=== PATIENT | female | born 1945 | race Caucasian/White ===

== ENCOUNTER → 2017-06-29 | Outpatient (CLI) | payer MEDICARE ==
--- NOTE | 2017-06-29 10:28 | BD ---
EXAMINATION TYPE: MG DEXA axial skeleton. DATE OF EXAM: 06/29/2017 COMPARISON: DEXA bone scan June 13, 2013 CLINICAL HISTORY: perimenopausal disorders Height: 5'5 Weight: 181 FRAX RISK QUESTIONS: Alcohol (3 or more units per day): no Family History (Parent hip fracture): no Glucocorticoids (More than 3mos): no (Ex: prednisone, prednisolone, methylprednisolone, dexamethasone, and hydrocortisone). History of Fracture in Adulthood: yes Secondary Osteoporosis: 1. Type 1 Diabetes: no 2. Hyperthyroidism: no 3. Menopause before 45: yes 4. Malnutrition: no 5. Chronic liver disease: no Rheumatoid Arthritis: no Current Tobacco Use: no RISK FACTORS HISTORY OF: Postmenopausal woman: MEDICATIONS: Prednisone or other steroids: How Lon week Thyroid Medications: Which medication: Levothyroxine How Lon years Additional Medications: blood pressure, cholesterol, Additional History: EXAM MEASUREMENTS: Bone mineral densitometry was performed using the [employer] System. Bone mineral density as measured about the Lumbar spine is: ----- L1-L4(G/cm2): 1.296 T Score Values are as follows: ----- L2: -0.1 ----- L3: 1.5 ----- L4: 2.0 ----- L1-L4:1.0 Bone mineral density has: Increased 3.8% since study of: 06/13/2013 Bone mineral density about the R hip (g/cm2): 1.014 Bone mineral density about the L hip (g/cm2): 1.005 T Score values are as follows: -----R Neck: -0.2 -----L Neck: -0.2 -----R Total: -0.2 -----L Total: -0.1 Bone mineral density has: Decreased -2.4% since study of: 06/13/2013 IMPRESSION: Normal (Values between +1 and -1 indicate normal bone mass). Bone density fairly stable. Consider re peating this study in 5 years or sooner if there is some new clinical indication. NOTE: T-SCORE=SD OF THE YOUNG ADULT MEAN.
== END ==
LOC: RADBDWWP 09:36
PROVIDERS: ATTEND Family Medicine
DX: N95.0 Postmenopausal bleeding (principal)
CPT/HCPCS: 77080

== ENCOUNTER 2018-10-17 10:21 | Emergency (ER) | payer MEDICARE ==
[2018-10-17 10:37] VITALS: RESP 18
[2018-10-17] MEDS ORDERED: SODIUM CHLORIDE 0.9% 500 ML 500 ML IV STA (11:06)
--- NOTE | 2018-10-17 11:16 | ED ---
General Adult HPI - General Chief complaint: Neuro Symptoms/Deficit Stated complaint: Confusion post op Time Seen by Provider: 10/17/18 10:57 Source: patient, family, RN notes reviewed Mode of arrival: ambulatory Limitations: no limitations - History of Present Illness Initial comments: 73-year-old female with a past medical history of GERD, hypertension, Green's esophagus, cataract surgery 2 weeks ago presents to the emergency department for a chief complaint of memory loss. This occurred about one hour prior to arrival. Patient's daughter states that she started to have pain in the eye that she had surgery on and went to the subway train [place] and was diagnosed with an infection. She was on her way home when the patient no longer remembered she went to the eye doctor. She seemed confused so they brought her to the emergency department. Patient states she does not room or why she is here but does not she is at [facility]. Patient denies any weakness or loss of sensation. Patient denies any difficulty ambulating. Patient states she feels her normal self. Patient has no other complaints at this time including shortness of breath, chest pain, abdominal pain, nausea or vomiting, headache, or visual changes. - Related Data Home Medications Medication Instructions Recorded Confirmed Levothyroxine Sodium [Tirosint] 75 mcg PO HS 08/30/14 10/17/18 Omeprazole [PriLOSEC] 20 mg PO AC-BRKFST 08/30/14 10/17/18 Atenolol 25 mg PO DAILY 10/17/18 10/17/18 Cholecalciferol (Vitamin D3) 4,000 mg PO DAILY@1200 10/17/18 10/17/18 [Vitamin D3] Montelukast [Singulair] 10 mg PO DAILY 10/17/18 10/17/18 Allergies Allergy/AdvReac Type Severity Reaction Status Date / Time No Known Allergies Allergy Verified 10/17/18 11:58 Review of Systems ROS Statement: Those systems with pertinent positive or pertinent negative responses have been documented in the HPI. ROS Other: All systems not noted in ROS Statement are negative. Past Medical History Past Medical History: GERD/Reflux, Hypertension Additional Past Medical History / Comment(s): barrets esophagus History of Any Multi-Drug Resistant Organisms: None Reported Past Surgical History: Tubal Ligation Additional Past Surgical History / Comment(s): Catarac surgary Past Psychological History: No Psychological Hx Reported Smoking Status: Never smoker Past Alcohol Use History: None Reported Past Drug Use History: None Reported General Exam Limitations: no limitations General appearance: alert, in no apparent distress Head exam: Present: atraumatic, normocephalic, normal inspection Eye exam: Present: normal appearance, PERRL, EOMI. Absent: scleral icterus, conjunctival injection, periorbital swelling ENT exam: Present: normal exam, normal oropharynx, mucous membranes moist, TM's normal bilaterally, normal external ear exam Neck exam: Present: normal inspection, full ROM. Absent: tenderness, meningismus, lymphadenopathy Respiratory exam: Present: normal lung sounds bilaterally. Absent: respiratory distress, wheezes, rales, rhonchi, stridor Cardiovascular Exam: Present: regular rate, normal rhythm, normal heart sounds. Absent: systolic murmur, diastolic murmur, rubs, gallop, clicks GI/Abdominal exam: Present: soft, normal bowel sounds. Absent: distended, tenderness, guarding, rebound, rigid Neurological exam: Present: alert, CN II-XII intact, normal gait. Absent: oriented X3 (oriented x2 to person and place), motor sensory deficit Expanded Neurological exam: Present: memory loss-recent event Patient oriented to: Present: person, place. Absent: time Speech: Present: fluid speech Cranial nerves: EOM's Intact: Normal, Gag Reflex: Normal, Tongue Deviation: Normal, Nystagmus: Normal, Facial Sensation: Normal Cerebellar function: Finger to Nose: Normal, Romberg: Normal Upper motor neuron: Pronator Drift: Normal Sensory exam: Upper Extremity Light Touch: Normal, Upper Extremity Pin Prick: Normal, Lower Extremity Light Touch: Normal, Lower Extremity Pin Prick: Normal Motor strength exam: RUE: 5, LUE: 5, RLE: 5, LLE: 5 Eye Response: (4) open spontaneously Motor Response: (6) obeys commands Verbal Response: (5) oriented James Total: 15 Psychiatric exam: Present: normal affect, normal mood Course Vital Signs 10/17/18 10/17/18 10/17/18 10:29 11:49 14:00 Temperature 98.5 F Pulse Rate 58 L 63 Respiratory 18 18 Rate Blood Pressure 198/105 179/104 180/93 O2 Sat by Pulse 97 98 99 Oximetry 10/17/18 14:18 Temperature Pulse Rate 61 Respiratory 18 Rate Blood Pressure 163/99 O2 Sat by Pulse 99 Oximetry - Reevaluation(s) Reevaluation #1: 10/17/18 14:[address] Burt at [facility] who will be calling neuro to see if they will admit her. EKG Findings - EKG Comments: EKG Findings:: Normal sinus rhythm, ventricular rate 60, QRS duration 82, QTC 416, no evidence of ST elevation or depression. Medical Decision Making - Medical Decision Making 73-year-old female with a past medical history of hypertension presents to the emergency department for a chief complaint of memory loss occurring approximately one hour prior to arrival. Patient received cataract surgery about 2 weeks ago and was on her way home from a recheck due to eye pain from an infection when she started to have memory loss. Daughter states patient could not remember she went to the eye doctor. On arrival to the emergency department patient is alert and oriented 2. NIH is 0. No focal deficits. CBC CMP unremarkable. Glucose 126. Troponin negative. Urine will be cultured. Chest x-ray shows no acute process. CT brain shows age-related chronic vessel ischemic change without acute intercranial process. Patient has possible TIA with symptoms of global amnesia. Patient has been somewhat hypertensive in the emergency department however this is within acceptable limits for symptoms. Dr. Hdz discussed this case with Dr Penaloza who recommends transfer to [facility] for neurology consult. This way, he can also see the patient at [facility]. Dr Burt at [facility] spoke with neurologist there and they do accept transfer. Family agrees with this. - Lab Data Result diagrams: 10/17/18 11:45 10/17/18 11:45 Lab Results 10/17/18 10/17/18 10/17/18 Range/Units 11:30 11:35 11:45 WBC (3.8-10.6) k/uL RBC (3.80-5.40) m/uL Hgb (11.4-16.0) gm/dL Hct (34.0-46.0) % MCV (80.0-100.0) fL MCH (25.0-35.0) pg MCHC (31.0-37.0) g/dL RDW (11.5-15.5) % Plt Count (150-450) k/uL Neutrophils % % Lymphocytes % % Monocytes % % Eosinophils % % Basophils % % Neutrophils # (1.3-7.7) k/uL Lymphocytes # (1.0-4.8) k/uL Monocytes # (0-1.0) k/uL Eosinophils # (0-0.7) k/uL Basophils # (0-0.2) k/uL PT (9.0-12.0) sec INR (<1.2) APTT (22.0-30.0) sec Sodium (137-145) mmol/L Potassium (3.5-5.1) mmol/L Chloride (98-107) mmol/L Carbon Dioxide (22-30) mmol/L Anion Gap mmol/L BUN (7-17) mg/dL Creatinine (0.52-1.04) mg/dL Est GFR (CKD-EPI)AfAm (>60 ml/min/1.73 sqM) Est GFR (CKD-EPI)NonAf (>60 ml/min/1.73 sqM) Glucose (74-99) mg/dL POC Glucose (mg/dL) 126 H (75-99) mg/dL POC Glu Molding Sander ID Freya Thurston Calcium (8.4-10.2) mg/dL Total Bilirubin (0.2-1.3) mg/dL AST (14-36) U/L ALT (9-52) U/L Alkaline Phosphatase (38-126) U/L Total Creatine Kinase 61 (30-135) U/L CK-MB (CK-2) 0.4 (0.0-2.4) ng/mL CK-MB (CK-2) Rel Index 0.7 Troponin I <0.012 (0.000-0.034) ng/mL Total Protein (6.3-8.2) g/dL Albumin (3.5-5.0) g/dL Urine Color Light Yellow Urine Appearance Clear (Clear) Urine pH 5.5 (5.0-8.0) Ur Specific [place]er 1.006 (1.001-1.035) Urine Protein Negative (Negative) Urine Glucose (UA) Trace H (Negative) Urine Ketones Negative (Negative) Urine Blood Negative (Negative) Urine Nitrite Negative (Negative) Urine Bilirubin Negative (Negative) Urine Urobilinogen <2.0 (<2.0) mg/dL Ur Leukocyte Esterase Moderate H (Negative) Urine WBC 3 (0-5) /hpf Ur Squamous Epith Cells <1 (0-4) /hpf Urine Bacteria Rare H (None) /hpf Urine Mucus Rare H (None) /hpf 10/17/18 10/17/18 10/17/18 Range/Units 11:45 11:45 11:45 WBC 4.8 (3.8-10.6) k/uL RBC 4.88 (3.80-5.40) m/uL Hgb 14.5 (11.4-16.0) gm/dL Hct 42.6 (34.0-46.0) % MCV 87.3 (80.0-100.0) fL MCH 29.7 (25.0-35.0) pg MCHC 34.0 (31.0-37.0) g/dL RDW 13.6 (11.5-15.5) % Plt Count 150 (150-450) k/uL Neutrophils % 70 % Lymphocytes % 20 % Monocytes % 6 % Eosinophils % 1 % Basophils % 1 % Neutrophils # 3.4 (1.3-7.7) k/uL Lymphocytes # 0.9 L (1.0-4.8) k/uL Monocytes # 0.3 (0-1.0) k/uL Eosinophils # 0.1 (0-0.7) k/uL Basophils # 0.0 (0-0.2) k/uL PT 9.9 (9.0-12.0) sec INR 0.9 (<1.2) APTT 24.8 (22.0-30.0) sec Sodium 142 (137-145) mmol/L Potassium 3.9 (3.5-5.1) mmol/L Chloride 106 (98-107) mmol/L Carbon Dioxide 27 (22-30) mmol/L Anion Gap 9 mmol/L BUN 13 (7-17) mg/dL Creatinine 1.08 H (0.52-1.04) mg/dL Est GFR (CKD-EPI)AfAm 59 (>60 ml/min/1.73 sqM) Est GFR (CKD-EPI)NonAf 51 (>60 ml/min/1.73 sqM) Glucose 106 H (74-99) mg/dL POC Glucose (mg/dL) (75-99) mg/dL POC Glu Molding Sander ID Calcium 9.5 (8.4-10.2) mg/dL Total Bilirubin 0.7 (0.2-1.3) mg/dL AST 23 (14-36) U/L ALT 21 (9-52) U/L Alkaline Phosphatase 52 (38-126) U/L Total Creatine Kinase (30-135) U/L CK-MB (CK-2) (0.0-2.4) ng/mL CK-MB (CK-2) Rel Index Troponin I (0.000-0.034) ng/mL Total Protein 6.9 (6.3-8.2) g/dL Albumin 4.5 (3.5-5.0) g/dL Urine Color Urine Appearance (Clear) Urine pH (5.0-8.0) Ur Specific Geyser (1.001-1.035) Urine Protein (Negative) Urine Glucose (UA) (Negative) Urine Ketones (Negative) Urine Blood (Negative) Urine Nitrite (Negative) Urine Bilirubin (Negative) Urine Urobilinogen (<2.0) mg/dL Ur Leukocyte Esterase (Negative) Urine WBC (0-5) /hpf Ur Squamous Epith Cells (0-4) /hpf Urine Bacteria (None) /hpf Urine Mucus (None) /hpf Disposition Clinical Impression: Global amnesia Disposition: OTHER INSTITUTION NOT DEFINED Condition: Fair Is patient prescribed a controlled substance at d/c from ED?: No Referrals: Nicohle Driscoll MD [Primary Care Provider] - 1-2 days Time of Disposition: 14:33 - Out of Hospital Transfer - Req. Specs Out of Hospital Transfer - Requested Specifics: Other Emergency Center ([facility])
[2018-10-17 11:39] LABS: Glucose,Whole Blood 126 mg/dL (75-99)
[2018-10-17 12:05] LABS: Basophils % (A) 1 %; Eosinophils # (A) 0.1 k/uL (0-0.7); Eosinophils % (A) 1 %; HCT 42.6 % (34.0-46.0); HGB 14.5 gm/dL (11.4-16.0); Lymphocytes # (A) 0.9 k/uL (1.0-4.8); Lymphocytes % (A) 20 %; MCH 29.7 pg (25.0-35.0); MCV 87.3 fL (80.0-100.0); Mean Platelet Volume 8.2; Monocytes # (A) 0.3 k/uL (0-1.0); Monocytes % (A) 6 %; Neutrophils # (A) 3.4 k/uL (1.3-7.7); Neutrophils % (A) 70 %; Platelet Count 150 k/uL (150-450); RBC 4.88 m/uL (3.80-5.40); RDW 13.6 % (11.5-15.5); WBC 4.8 k/uL (3.8-10.6)
--- NOTE | 2018-10-17 12:08 | CT ---
EXAMINATION TYPE: CT brain wo con DATE OF EXAM: 10/17/2018 COMPARISON: None HISTORY: Confusion CT DLP: 1101.[address] of the brain was performed. The ventricles, basal cisterns and sulci overlying the cerebral convexities demonstrate mild enlargem ent. There is no evidence for intracranial hemorrhage or sulcal effacement. There is decreased attenuation about the periventricular white matter and deep white matter of both c erebral hemispheres, compatible with chronic small vessel ischemia. Differential diagnosis does inclu de demyelination. No mass effects are seen.No midline shift. Osseous calvarium is intact. If symptoms persist consider MRI. IMPRESSION: 1. Age related atrophic and chronic small vessel ischemic change without acute intracranial process s een at this time.
[2018-10-17 12:13] LABS: Albumin 4.5 g/dL (3.5-5.0); Calcium 9.5 mg/dL (8.4-10.2); Potassium 3.9 mmol/L (3.5-5.1); Total Bilirubin 0.7 mg/dL (0.2-1.3); Total Protein 6.9 g/dL (6.3-8.2)
[2018-10-17 12:20] LABS: INR 0.9 (<1.2); Partial Thromboplastin Time 24.8 sec (22.0-30.0); Prothrombin Time 9.9 sec (9.0-12.0)
[2018-10-17 12:20] LABS: Appearance,Urine Clear (Clear); Bacteria,Urine Rare /hpf; Bilirubin,Urine Negative (Negative); Blood,Urine Negative (Negative); Color,Urine Light Yellow; Glucose,Urine (UA) Trace (Negative); Ketones,Urine Negative (Negative); Leukocyte Esterase,Urine Moderate (Negative); Mucus,Urine Rare /hpf; Nitrite,Urine Negative (Negative); PH, Urine 5.5 (5.0-8.0); Protein,Urine Negative (Negative); Specific Gravity,Urine 1.006 (1.001-1.035); Squamous Epithelial Cell,Urine <1 /hpf (0-4); Urobilinogen,Urine <2.0 mg/dL (<2.0); WBC,Urine 3 /hpf (0-5)
--- NOTE | 2018-10-17 12:23 | XR ---
EXAMINATION TYPE: XR chest 2V DATE OF EXAM: 10/17/2018 COMPARISON: 11/30/2015 TECHNIQUE: PA and lateral views submitted. HISTORY: Altered mental status FINDINGS: The lungs are clear and there is no pneumothorax, pleural effusion, or focal pneumonia. Hypertrophi c and degenerative change of the spine. No overt failure. IMPRESSION: 1. No acute process.
[2018-10-17 12:26] LABS: Creatine Kinase 61 U/L (30-135)
[2018-10-17 12:39] LABS: Creatine Kinase MB 0.4 ng/mL (0.0-2.4); Troponin I <0.012 ng/mL (0.000-0.034)
[2018-10-17 14:19] VITALS: BP 163/99; PULSE 61
[2018-10-17 15:14] VITALS: TEMP 98.7
== END 2018-10-17 15:14 | disposition other institution (70) ==
LOC: EC 10:21
DX: G45.4 Transient global amnesia (principal); K21.9 Gastro-esophageal reflux disease without esophagitis; I10 Essential (primary) hypertension; Z79.890 Hormone replacement therapy; Z79.899 Other long term (current) drug therapy
CPT/HCPCS: 36415; 70450; 71046; 80053; 81001; 82550; 82553; 84484; 85025; 85610; 85730; 87086; 93005; 96360; 99285

== ENCOUNTER → 2018-11-03 | Outpatient (CLI) | payer MEDICARE ==
--- NOTE | 2018-11-03 16:44 | MR ---
EXAMINATION TYPE: MR angio head wo con DATE OF EXAM: 11/03/2018 COMPARISON: None HISTORY: TIA CONTRAST: None TECHNIQUE: Multiplanar multiecho imaging on a 3.0 Kendal magnet is performed through the [place] of Justin lis. 3-D [id number] imaging is performed. Source images are reviewed on the computer in the axi al plane. Reconstructed images rotating on the computer are reviewed. FINDINGS: The internal carotid arteries bifurcate normally into A1 and M1 segments. The A2 segments are normal. Middle cerebral artery branches are normal. Anterior communicating artery is patent. The right posterior communicating artery is patent. This appears to terminate in the right posterior cerebral artery although this is also communicating with vertebrobasilar system. The left posterior communicating artery is absent. Ophthalmic arteries are normal Vertebrobasilar arteries within the [id number] are normal. Posterior cerebral vasculature is norm al. No suspicious aneurysm or aneurysmal dilatation is evident. No obstructions are identified. No significant flow-limiting stenosis is evident. IMPRESSIONS: 1. NORMAL MRA SANTO DOMINGO OF BACK.
--- NOTE | 2018-11-03 16:46 | MR ---
EXAMINATION TYPE: MR brain wo/w con DATE OF EXAM: 11/03/2018 COMPARISON: CT brain 10/17/2018 HISTORY: TIA CONTRAST: Performed utilizing 8 mL intravenous Gadavist gadolinium contrast. TECHNIQUE: Multiplanar, multiecho imaging on a 3.0 Kendal magnet is performed through the brain. Stud y is performed within 24 hours of arrival to the hospital. The craniovertebral junction is normal. The pituitary is normal. Diffusion-weighted imaging is performed. No abnormal hyperintensity is present to suggest an acute i ntracranial infarct or acute ischemic change. There are scattered patchy areas of increased signal within the periventricular white matter which co uld be related to chronic white matter changes. Ventricles and sulci are appropriate for the patient age. No suspicious enhancement is evident following contrast administration. IMPRESSIONS: 1. Chronic appearing white matter ischemic type changes. 2. No acute intracranial process.
== END ==
LOC: RADMRIMAIN 11:33
PROVIDERS: ATTEND Family Medicine
DX: I67.82 Cerebral ischemia (principal); N18.1 Chronic kidney disease, stage 1
CPT/HCPCS: 82565; 84520; 70544; 70553; 36415; A9585

== ENCOUNTER 2018-12-19 18:26 | Emergency (ER) | payer MEDICARE ==
[2018-12-19 18:47] VITALS: RESP 16
--- NOTE | 2018-12-19 19:07 | ED ---
Lower Extremity Injury HPI - General Chief Complaint: Extremity Injury, Lower Stated Complaint: fall, rt leg injury Time Seen by Provider: 12/19/18 18:50 Source: patient, RN notes reviewed, old records reviewed Mode of arrival: ambulatory Limitations: no limitations - History of Present Illness Initial Comments: Patient is a 73-year-old female who presents today with right lower extremity swelling and bruising. Patient reports she has history of significant varicose veins. She reports that her daughter's Young the dog ran into her leg. She complains of some swelling and pain in the lower leg and calf. Patient states that she has no shortness breath or chest pain. She denies any other complaints. She reports that she fell and her leg one week ago but was doing well up until today when the new injury occurred. - Related Data Home Medications Medication Instructions Recorded Confirmed Levothyroxine Sodium [Tirosint] 75 mcg PO HS 08/30/14 10/17/18 Omeprazole [PriLOSEC] 20 mg PO AC-BRKFST 08/30/14 10/17/18 Atenolol 25 mg PO DAILY 10/17/18 10/17/18 Cholecalciferol (Vitamin D3) 4,000 mg PO DAILY@1200 10/17/18 10/17/18 [Vitamin D3] Montelukast [Singulair] 10 mg PO DAILY 10/17/18 10/17/18 Allergies Allergy/AdvReac Type Severity Reaction Status Date / Time No Known Allergies Allergy Verified 12/19/18 18:47 Review of Systems ROS Statement: Those systems with pertinent positive or pertinent negative responses have been documented in the HPI. ROS Other: All systems not noted in ROS Statement are negative. Past Medical History Past Medical History: GERD/Reflux, Hypertension Additional Past Medical History / Comment(s): barrets esophagus History of Any Multi-Drug Resistant Organisms: None Reported Past Surgical History: Tubal Ligation Additional Past Surgical History / Comment(s): Catarac surgary Past Psychological History: No Psychological Hx Reported Smoking Status: Never smoker Past Alcohol Use History: None Reported Past Drug Use History: None Reported General Exam - General Exam Comments Initial Comments: 73-year-old female. Alert and oriented. No distress. Limitations: no limitations General appearance: alert, in no apparent distress Head exam: Present: atraumatic, normocephalic, normal inspection Eye exam: Present: normal appearance, PERRL, EOMI. Absent: scleral icterus, conjunctival injection, periorbital swelling ENT exam: Present: normal exam, mucous membranes moist Neck exam: Present: normal inspection. Absent: tenderness, meningismus, lymphadenopathy Respiratory exam: Present: normal lung sounds bilaterally. Absent: respiratory distress, wheezes, rales, rhonchi, stridor Cardiovascular Exam: Present: regular rate, normal rhythm, normal heart sounds. Absent: systolic murmur, diastolic murmur, rubs, gallop, clicks GI/Abdominal exam: Present: soft, normal bowel sounds. Absent: distended, tenderness, guarding, rebound, rigid Extremities exam: Present: normal inspection, full ROM, normal capillary refill. Absent: tenderness, pedal edema, joint swelling, calf tenderness Right Knee exam: Present: normal inspection, full ROM Lower Leg exam: Present: normal inspection, tenderness, swelling, ecchymosis (large hematoma and ecchymosis over anterior piper measuring 6cm by 10cm.) Ankle exam: Present: normal inspection, full ROM Back exam: Present: normal inspection Neurological exam: Present: alert, oriented X3, CN II-XII intact Psychiatric exam: Present: normal affect, normal mood Skin exam: Present: warm, dry, intact, normal color. Absent: rash Course Vital Signs 12/19/18 12/19/18 18:44 20:45 Temperature 98 F 98.3 F Pulse Rate 67 56 L Respiratory 16 16 Rate Blood Pressure 135/89 132/71 O2 Sat by Pulse 98 95 Oximetry Medical Decision Making - Medical Decision Making 73-year-old female presents for shortness today with right lower extremity bruising. Patient reports that she was ran into by her daughter's dog. She has some contusions over the anterior piper and tenderness of the calf. Patient had ultrasound was negative for DVT. X-ray of the tib-fib is negative for any acute process. Discussed this is just a contusion and will go away with rest ice and elevation. Patient understands treatment plan will comply. Return parameters were discussed. - Radiology Data Radiology results: report reviewed No acute fracture dislocation seen in the right tibia or fibula. Ultrasound is negative for DVT. Disposition Clinical Impression: Contusion of leg Disposition: HOME SELF-CARE Condition: Good Instructions (If sedation given, give patient instructions): Hematoma (ED) Additional Instructions: Patient advised to follow-up with primary care doctor. Wear Sonny wrap. Rest, ice, and elevate extremity. Return to emergency department if any alarming signs or symptoms occur. Is patient prescribed a controlled substance at d/c from ED?: No Referrals: Nichole Driscoll MD [Primary Care Provider] - 1-2 days Time of Disposition: 20:50
--- NOTE | 2018-12-19 20:05 | US ---
EXAMINATION TYPE: US venous doppler duplex LE RT DATE OF EXAM: 12/19/2018 7:49 PM COMPARISON: NONE CLINICAL HISTORY: Pain. Right leg pain. SIDE PERFORMED: Right TECHNIQUE: The lower extremity deep venous system is examined utilizing real time linear array sonog ricky with graded compression, doppler sonography and color-flow sonography. VESSELS IMAGED: External Iliac Vein (EIV) Common Femoral Vein Deep Femoral Vein Greater Saphenous Vein * Femoral Vein Popliteal Vein Small Saphenous Vein * Proximal Calf Veins (* superficial vessels) Right Leg: Negative for DVT Grayscale, color doppler, spectral doppler imaging performed of the deep veins of the right lower ext remity. There is normal flow, compressibility, vascular waveforms. IMPRESSION: No ultrasound evidence for acute DVT in the right lower extremity.
--- NOTE | 2018-12-19 20:44 | XR ---
EXAMINATION TYPE: XR tibia fibula RT DATE OF EXAM: 12/19/2018 CLINICAL HISTORY: Pain after fall injury. TECHNIQUE: Two views of the right leg are obtained. COMPARISON: None. FINDINGS: There is no acute fracture or dislocation seen in the right tibia or fibula. Mild to moder ate tricompartment joint space loss in the is present. Visualized ankle joint is felt within normal l imits. Tubular density soft tissue could reflect varicose veins or overlying clothing material. IMPRESSION: There is no acute fracture or dislocation seen in the right tibia or fibula.
[2018-12-19 20:46] VITALS: BP 132/71; PULSE 56; TEMP 98.3
== END 2018-12-19 21:00 | disposition home or self-care (01) ==
LOC: EC 18:26
DX: S80.11XA Contusion of right lower leg, initial encounter (principal); K21.9 Gastro-esophageal reflux disease without esophagitis; I10 Essential (primary) hypertension; Z86.79 Personal history of other diseases of the circulatory system; Z98.51 Tubal ligation status; Z98.890 Other specified postprocedural states; Z79.890 Hormone replacement therapy; Z79.899 Other long term (current) drug therapy; W54.1XXA Struck by dog, initial encounter; W19.XXXA Unspecified fall, initial encounter; W22.8XXA Striking against or struck by other objects, initial encounter
CPT/HCPCS: 99284

== ENCOUNTER → 2022-02-20 | Outpatient (CLI) | payer MEDICARE ==
--- NOTE | 2022-02-20 19:01 | CT ---
EXAMINATION TYPE: CT abdomen pelvis w con DATE OF EXAM: 02/20/2022 COMPARISON: None HISTORY: diarrhea CT DLP: 1045.9 mGycm Automated exposure control for dose reduction was used. CONTRAST: CT scan of the abdomen pelvis is performed with IV Contrast, patient injected with 80 mL of Isovue 30 0. FINDINGS- LUNG BASES-year subsegmental changes at the lung bases most typical of atelectasis. Mild basilar bron chiectasis. Correlate for COPD. Calcification of the aortic valve noted. Small hiatal hernia seen.. LIVER/GB-within the left lobe of the liver there is a 1.8 cm hypodensity measuring 9 Hounsfield units , simple cyst. No gallstones.. PANCREAS- No gross abnormality is seen. SPLEEN- No gross abnormality is seen. ADRENALS- No gross abnormality is seen. KIDNEYS/BLADDER- no hydronephrosis nephrolithiasis or renal mass. BOWEL-diverticulosis with no CT evidence of diverticulitis. No evidence of obstruction. There is thic kening of the wall the gastric antrum and pylorus. LYMPH NODES- No greater than 1cm abdominal or pelvic lymph nodes areappreciated. OSSEOUS STRUCTURES-hypertrophic and degenerative changes spine with multilevel facet arthropathy and grade 1 anterolisthesis L4 on L5.. OTHER- atherosclerotic changes aorta with no evidence of aneurysm. IMPRESSION- 1. Diverticulosis with no CT evidence of diverticulitis. There is concern for mucosal lesion correlat e with colonoscopy as clinically warranted. 2. Mild wall thickening of the gastric antrum may be related to incomplete distention. Peptic ulcer d isease or mucosal lesion in the differential diagnosis. Correlate clinically and with upper GI or en doscopy as clinically warranted.
== END | disposition home or self-care (01) ==
LOC: RADCTMAIN 14:57
PROVIDERS: ATTEND Family Medicine
DX: K57.10 Diverticulosis of small intestine without perforation or abscess without bleeding (principal)
CPT/HCPCS: 82565; 84520; 74177; Q9967

== ENCOUNTER 2022-05-22 05:35 | Day surgery (SDC) | payer MEDICARE ==
[2022-05-20 09:53] VITALS: BMI 29.5
[~2022-05-22 05:35] MED LIST: LACTATED RINGERS 1,000 ML IV SCH
[2022-05-22 06:03] VITALS: TEMP 96.9
[2022-05-22] MEDS ORDERED: hydrALAZINE HCL 20 MG/ML 1 ML VIAL IVP ONE (06:29)
[2022-05-22] MEDS ORDERED: PROPOFOL 10 MG/ML 20 ML VIAL IV ONE (06:32)
[2022-05-22] MEDS ORDERED: LIDOCAINE 2% INJ 20 MG/ML (2 ML VIAL) ONE (06:32)
--- NOTE | 2022-05-22 06:57 | P.PCN ---
Date of Procedure: 05/22/22 Procedure(s) Performed: Brief history: Patient is a pleasant 77-year-old white female scheduled for an elective upper endoscopy as well as colonoscopy as a part of evaluation of GERD and chronic diarrhea for the last 1 year duration. She has long-standing history of GERD and has been on omeprazole 20 mg daily with good control of the symptoms. She has about 3-4 loose watery bowel movements in the morning the last 1 year with bleeding. Procedure performed: Esophagogastroduodenoscopy with biopsy Colonoscopy with biopsy Preoperative diagnosis: Long-standing history of GERD Chronic diarrhea of 1 year duration Anesthesia: MAC Procedure: After informed consent was obtained from the patient was brought into the endoscopy unit and IV sedation was administered by anesthesia under continuous monitoring. Initially upper endoscopy was done. The Olympus GF 160 video endoscope was inserted inserted into the mouth and esophagus intubated without any difficulty and was gradually advanced into the stomach and duodenum and carefully examined. The bulb and second part of the duodenum appeared normal. The scope was then withdrawn into the stomach adequately insufflated with air and upon careful examination the antrum had mild gastritis and biopsies were done from this area. There are multiple gastric polyps noted in the body and fundus of the stomach which were biopsied. The rest of the kassidy, cardia and fundus appeared normal. The scope was then withdrawn into the esophagus. The GE junction was located at 40 cm to the incithere was long segment of Green's esophagus and from 35-40 cm from the incisors and the mucosa in the segment of Green's esophagus appeared smooth with no nodules. Multiple biopsies were done from this area.est of the esophagus appeared normal. Patient tolerated the procedure well. At this time the patient continued to remain sedation. Initial digital rectal examination was normal. Olympus CF 160 video colonoscope was then inserted into the rectum and gradually advanced to the cecum without any difficulty. Careful examination was performed as the scope was gradually being withdrawn. The prep was excellent. The cecum, ascending colon, transverse colon, descending colon, sigmoid colon and rectum appeared normal. scattered sigmoid diverticulosis. Retroflexion was performed in the rectum and no lesions were noted. random biopsies were done from ascending and descending colon to rule out microscopic/collagenous colitis. Patient tolerated the procedure well. Impression: 1. 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 colonoscopy revealed scattered sigmoid diverticulosis but no evidence of colorectal neoplasia Recommendations: Findings of this examination were discussed with the patient as well as her family. She was advised to follow with the biopsy results. If the biopsy confirms the presence of Green's esophagus he can have a repeat upper endoscopy every 3 years. In the meantime she'll continue with omeprazole 20 mg daily and follow antireflux measures.
[2022-05-22 07:09] VITALS: RESP 17
[2022-05-22 07:21] VITALS: BP 148/81; PULSE 66
== END 2022-05-22 07:40 | disposition home or self-care (01) ==
LOC: ORWHC2ENDO 05:35
PROVIDERS: ATTEND Internal Medicine Gastroenterology
DX: K22.70 Barrett's esophagus without dysplasia (principal); K31.7 Polyp of stomach and duodenum; K29.50 Unspecified chronic gastritis without bleeding; K21.9 Gastro-esophageal reflux disease without esophagitis; K57.30 Diverticulosis of large intestine without perforation or abscess without bleeding; Z88.8 Allergy status to other drugs, medicaments and biological substances; Z79.890 Hormone replacement therapy; Z79.899 Other long term (current) drug therapy; Z79.82 Long term (current) use of aspirin; Z80.9 Family history of malignant neoplasm, unspecified; Z82.49 Family history of ischemic heart disease and other diseases of the circulatory system; I10 Essential (primary) hypertension; E03.9 Hypothyroidism, unspecified; M19.90 Unspecified osteoarthritis, unspecified site; Z86.73 Personal history of transient ischemic attack (TIA), and cerebral infarction without residual deficits; G45.4 Transient global amnesia; Z98.51 Tubal ligation status
CPT/HCPCS: 88305; 88342; 45380; 43239; J0360; J2704; J2001

== ENCOUNTER 2023-07-27 19:59 | Emergency (ER) | payer MEDICARE ==
--- NOTE | 2023-07-27 20:05 | ED ---
General Adult HPI - General Stated complaint: Accidental overdose Time Seen by Provider: 07/27/23 20:04 Source: patient, family, RN notes reviewed Mode of arrival: ambulatory Limitations: no limitations - History of Present Illness Initial comments: 78-year-old female presents emergency Department with chief complaint of nausea vomiting, hypertension. Patient states she does not feel well. She states that she started on Flagyl states that she is very sick to her stomach. Patient denies any chest pain. Patient is brought in with family. states she was given Flagyl for her probable diverticulitis. She does have a history of this. She states she is having this abdominal pain and PCP felt that she denies was cause he states that she recently took double her dose of Flagyl. She states she's been vomiting throughout the day or several episodes. Denies any thuan temesis or coffee-ground emesis - Related Data Home Medications Medication Instructions Recorded Confirmed Levothyroxine Sodium [Tirosint] 88 mcg PO DAILY 08/30/14 05/20/22 Omeprazole [PriLOSEC] 20 mg PO AC-BRKFST 08/30/14 05/22/22 Cholecalciferol (Vitamin D3) 5,000 mg PO HS 10/17/18 05/22/22 [Vitamin D3] atenoloL 25 mg PO DAILY 10/17/18 05/20/22 Aspirin 81 mg PO DAILY 05/20/22 05/22/22 Previous Rx's Medication Instructions Recorded Ondansetron Odt [Zofran Odt] 4 mg PO Q8HR PRN #10 tab 07/28/23 Allergies Allergy/AdvReac Type Severity Reaction Status Date / Time pseudoephedrine Allergy Rash/Hives Verified 07/27/23 20:44 [facility] Review of Systems ROS Statement: Those systems with pertinent positive or pertinent negative responses have been documented in the HPI. ROS Other: All systems not noted in ROS Statement are negative. Past Medical History Past Medical History: GERD/Reflux, Hypertension, Thyroid Disorder Additional Past Medical History / Comment(s): barrets esophagus, History of Any Multi-Drug Resistant Organisms: None Reported Past Surgical History: Tubal Ligation Additional Past Surgical History / Comment(s): bilateral Cataract surgary Past Anesthesia/Blood Transfusion Reactions: Motion Sickness Smoking Status: Never smoker - Past Family History Father Family Medical History: Cancer Daughter(s) Family Medical History: Pulmonary Embolus General Exam - General Exam Comments Initial Comments: Visual Physical Exam Vital signs reviewed General: Well-appearing, nontoxic, no acute distress. Head: Normocephalic, atraumatic Eyes: PERRLA, EOMI ENT: Airway patent Chest: Nonlabored breathing Skin: No visual rash, normal skin tone Neuro: Alert and oriented 3 Musculoskeletal: No gross abnormalities General appearance: alert, in no apparent distress Head exam: Present: atraumatic, normocephalic, normal inspection Eye exam: Present: normal appearance, PERRL, EOMI. Absent: scleral icterus, conjunctival injection, periorbital swelling Respiratory exam: Present: normal lung sounds bilaterally. Absent: respiratory distress, wheezes, rales, rhonchi, stridor Cardiovascular Exam: Present: regular rate, normal rhythm, normal heart sounds. Absent: systolic murmur, diastolic murmur, rubs, gallop, clicks GI/Abdominal exam: Present: soft, tenderness, normal bowel sounds. Absent: distended, guarding, rebound, rigid Back exam: Absent: CVA tenderness (R), CVA tenderness (L) Course Vital Signs 07/27/23 07/27/23 07/28/23 20:39 22:56 00:24 Temperature 99.4 F Pulse Rate 69 71 86 Respiratory 17 22 18 Rate Blood Pressure 202/97 190/97 164/91 O2 Sat by Pulse 98 98 96 Oximetry Medical Decision Making - Medical Decision Making I completed the quick note portion of this chart signed Reginald Hensley PA-C Was pt. sent in by a medical professional or institution ([facility], SENIOR SYSTEMS ENGINEER, urgent care, hospital, or residential...) When possible be specific @ -Reviewed prior laboratory studies Did you speak to anyone other than the patient for history (EMS, parent, family, police, friend...)? What history was obtained from this source @ -No Did you review nursing and triage notes (agree or disagree)? Why? @ -I reviewed and agree with nursing and triage notes Were old charts reviewed (outside hosp., previous admission, EMS record, old EKG, old radiological studies, urgent care reports/EKG's, residential records)? Report findings @ -No old charts were reviewed Differential Diagnosis (chest pain, altered mental status, abdominal pain women, abdominal pain men, vaginal bleeding, weakness, fever, dyspnea, syncope, headache, dizziness, GI bleed, back pain, seizure, CVA, palpatations, mental health, musculoskeletal)? @ -Differential Abdominal Pain Women: Appendicitis, Cholecystitis, diverticulosis, ischemic bowel, pancreatitis, hepatitis, UTI, gastroenteritis, AAA, incarcerated hernia, bowel obstruction, constipation, inflammatory bowel, hepatitis, peptic ulcer disease, splenic infarction, perforated viscus, vulvitis, ovarian torsion, PID, kidney stone, placenta abruption, this is not meant to be an all-inclusive listle EKG interpreted by me (3pts min.). @ -[None X-rays interpreted by me (1pt min.). @ -None done CT interpreted by me (1pt min.). @ -CT abdomen pelvis shows no evidence of acute diverticulitis there is noted diverticulosis U/S interpreted by me (1pt. min.). @ -None done What testing was considered but not performed or refused? (CT, X-rays, U/S, labs)? Why? @ -None What meds were considered but not given or refused? Why? @ -None Did you discuss the management of the patient with other professionals (professionals i.e. , PA, SENIOR SYSTEMS ENGINEER, lab, RT, psych nurse, protective services social worker, health concierge, teacher, professional security officer, casey saw operator)? Give summary @ -No Was smoking cessation discussed for >3mins.? @ -No Was critical care preformed (if so, how long)? @ -No Were there social determinants of health that impacted care today? How? (Homelessness, low income, unemployed, alcoholism, drug addiction, transportation, low edu. Level, literacy, decrease access to med. care, prison, rehab)? @ -No Was there de-escalation of care discussed even if they declined (Discuss DNR or withdrawal of care, Hospice)? DNR status @ -No What co-morbidities impacted this encounter? (DM, HTN, Smoking, COPD, CAD, Cancer, CVA, ARF, Chemo, Hep., AIDS, mental health diagnosis, sleep apnea, morbid obesity)? @ -None Was patient admitted / discharged? Hospital course, mention meds given and route, prescriptions, significant lab abnormalities, going to OR and other pertinent info. @ -Discharge patient feels greatly improved blood pressures improve headache is resolved. Patient we discharged with antiemetics return parameters were discussed. Family agrees to plan of discharge Undiagnosed new problem with uncertain prognosis? @ -No Drug Therapy requiring intensive monitoring for toxicity (Heparin, Nitro, Insulin, Cardizem)? @ -No Were any procedures done? @ -No Diagnosis/symptom? @ -Nausea vomiting, medication reaction Acute, or Chronic, or Acute on Chronic? @ -Acute Uncomplicated (without systemic symptoms) or Complicated (systemic symptoms)? @ -[Complicated Side effects of treatment? @ -No Exacerbation, Progression, or Severe Exacerbation? @ -No Poses a threat to life or bodily function? How? (Chest pain, USA, IA, pneumonia, PE, COPD, DKA, ARF, appy, cholecystitis, CVA, Diverticulitis, Homicidal, Suic idal, threat to staff... and all critical care pts) @ -No - Lab Data Result diagrams: 07/27/23 20:44 07/27/23 20:44 Lab Results 07/27/23 07/27/23 07/27/23 Range/Units 20:44 20:44 20:44 WBC 7.4 (3.8-10.6) k/uL RBC 4.57 (3.80-5.40) m/uL Hgb 13.9 (11.4-16.0) gm/dL Hct 39.0 (34.0-46.0) % MCV 85.5 (80.0-100.0) fL MCH 30.4 (25.0-35.0) pg MCHC 35.6 (31.0-37.0) g/dL RDW 13.6 (11.5-15.5) % Plt Count 142 L (150-450) k/uL MPV 8.6 Neutrophils % 80 % Lymphocytes % 14 % Monocytes % 4 % Eosinophils % 1 % Basophils % 0 % Neutrophils # 5.9 (1.3-7.7) k/uL Lymphocytes # 1.0 (1.0-4.8) k/uL Monocytes # 0.3 (0-1.0) k/uL Eosinophils # 0.1 (0-0.7) k/uL Basophils # 0.0 (0-0.2) k/uL Sodium 130 L (137-145) mmol/L Potassium 3.7 (3.5-5.1) mmol/L Chloride 97 L (98-107) mmol/L Carbon Dioxide 21 L (22-30) mmol/L Anion Gap 12 mmol/L BUN 12 (7-17) mg/dL Creatinine 0.84 (0.52-1.04) mg/dL Est GFR (CKD-EPI)AfAm 76 (>60 ml/min/1.73 sqM) Est GFR (CKD-EPI)NonAf 66 (>60 ml/min/1.73 sqM) Glucose 110 H (74-99) mg/dL Plasma Lactic Acid Kendrick (0.7-2.0) mmol/L Calcium 9.2 (8.4-10.2) mg/dL Total Bilirubin 0.8 (0.2-1.3) mg/dL AST 24 (14-36) U/L ALT 17 (4-34) U/L Alkaline Phosphatase 60 (38-126) U/L Total Protein 6.7 (6.3-8.2) g/dL Albumin 4.3 (3.5-5.0) g/dL Lipase 67 (23-300) U/L Urine Color Light Yellow Urine Appearance Cloudy H (Clear) Urine pH 8.5 H (5.0-8.0) Ur Specific [place] 1.014 (1.001-1.035) Urine Protein Trace H (Negative) Urine Glucose (UA) Negative (Negative) Urine Ketones Negative (Negative) Urine Blood Negative (Negative) Urine Nitrite Negative (Negative) Urine Bilirubin Negative (Negative) Urine Urobilinogen <2.0 (<2.0) mg/dL Ur Leukocyte Esterase Moderate H (Negative) Urine RBC 2 (0-5) /hpf Urine WBC 21 H (0-5) /hpf Ur Squamous Epith Cells 3 (0-4) /hpf Urine Bacteria Rare H (None) /hpf Urine Mucus Rare H (None) /hpf Influenza Type A (PCR) (Not Detectd) Influenza Type B (PCR) (Not Detectd) RSV (PCR) (Not Detectd) SARS-CoV-2 (PCR) (Not Detectd) 07/27/23 07/27/23 Range/Units 20:44 22:59 WBC (3.8-10.6) k/uL RBC (3.80-5.40) m/uL Hgb (11.4-16.0) gm/dL Hct (34.0-46.0) % MCV (80.0-100.0) fL MCH (25.0-35.0) pg MCHC (31.0-37.0) g/dL RDW (11.5-15.5) % Plt Count (150-450) k/uL MPV Neutrophils % % Lymphocytes % % Monocytes % % Eosinophils % % Basophils % % Neutrophils # (1.3-7.7) k/uL Lymphocytes # (1.0-4.8) k/uL Monocytes # (0-1.0) k/uL Eosinophils # (0-0.7) k/uL Basophils # (0-0.2) k/uL Sodium (137-145) mmol/L Potassium (3.5-5.1) mmol/L Chloride (98-107) mmol/L Carbon Dioxide (22-30) mmol/L Anion Gap mmol/L BUN (7-17) mg/dL Creatinine (0.52-1.04) mg/dL Est GFR (CKD-EPI)AfAm (>60 ml/min/1.73 sqM) Est GFR (CKD-EPI)NonAf (>60 ml/min/1.73 sqM) Glucose (74-99) mg/dL Plasma Lactic Acid Kendrick 1.1 (0.7-2.0) mmol/L Calcium (8.4-10.2) mg/dL Total Bilirubin (0.2-1.3) mg/dL AST (14-36) U/L ALT (4-34) U/L Alkaline Phosphatase (38-126) U/L Total Protein (6.3-8.2) g/dL Albumin (3.5-5.0) g/dL Lipase (23-300) U/L Urine Color Urine Appearance (Clear) Urine pH (5.0-8.0) Ur Specific [place] (1.001-1.035) Urine Protein (Negative) Urine Glucose (UA) (Negative) Urine Ketones (Negative) Urine Blood (Negative) Urine Nitrite (Negative) Urine Bilirubin (Negative) Urine Urobilinogen (<2.0) mg/dL Ur Leukocyte Esterase (Negative) Urine RBC (0-5) /hpf Urine WBC (0-5) /hpf Ur Squamous Epith Cells (0-4) /hpf Urine Bacteria (None) /hpf Urine Mucus (None) /hpf Influenza Type A (PCR) Not Detected (Not Detectd) Influenza Type B (PCR) Not Detected (Not Detectd) RSV (PCR) Not Detected (Not Detectd) SARS-CoV-2 (PCR) Not Detected (Not Detectd) Disposition Clinical Impression: Nausea & vomiting, Medication reaction Disposition: HOME SELF-CARE Condition: Stable Instructions (If sedation given, give patient instructions): Acute Nausea and Vomiting (ED) Additional Instructions: Please return to the Emergency Department if symptoms worsen or any other concerns. Prescriptions: Ondansetron Odt [Zofran Odt] 4 mg PO Q8HR PRN #10 tab PRN Reason: Nausea Is patient prescribed a controlled substance at d/c from ED?: No Referrals: Nichole Driscoll MD [Primary Care Provider] - 1-2 days Time of Disposition: 01:47
[2023-07-27 20:54] LABS: Basophils % (A) 0 %; Eosinophils # (A) 0.1 k/uL (0-0.7); Eosinophils % (A) 1 %; HGB 13.9 gm/dL (11.4-16.0); Lymphocytes % (A) 14 %; MCH 30.4 pg (25.0-35.0); MCHC 35.6 g/dL (31.0-37.0); MCV 85.5 fL (80.0-100.0); Mean Platelet Volume 8.6; Monocytes # (A) 0.3 k/uL (0-1.0); Monocytes % (A) 4 %; Neutrophils # (A) 5.9 k/uL (1.3-7.7); Neutrophils % (A) 80 %; Platelet Count 142 k/uL (150-450); RBC 4.57 m/uL (3.80-5.40); RDW 13.6 % (11.5-15.5); WBC 7.4 k/uL (3.8-10.6)
[2023-07-27 20:58] VITALS: TEMP 99.4
[2023-07-27 21:18] LABS: ALT 17 U/L (4-34); AST 24 U/L (14-36); African American GFR (CKD) 76 (>60 ml/min/1.73 sqM); Albumin 4.3 g/dL (3.5-5.0); Alkaline Phosphatase 60 U/L (38-126); Anion Gap 12 mmol/L; Blood Urea Nitrogen 12 mg/dL (7-17); Calcium 9.2 mg/dL (8.4-10.2); Carbon Dioxide 21 mmol/L (22-30); Chloride 97 mmol/L (98-107); Glucose 110 mg/dL (74-99); Lipase 67 U/L (23-300); Non-African American GFR(CKD) 66 (>60 ml/min/1.73 sqM); Potassium 3.7 mmol/L (3.5-5.1); Sodium 130 mmol/L (137-145); Total Bilirubin 0.8 mg/dL (0.2-1.3); Total Protein 6.7 g/dL (6.3-8.2)
[2023-07-27 21:39] LABS: Appearance,Urine Cloudy (Clear); Bacteria,Urine Rare /hpf; Bilirubin,Urine Negative (Negative); Blood,Urine Negative (Negative); Color,Urine Light Yellow; Glucose,Urine (UA) Negative (Negative); Ketones,Urine Negative (Negative); Leukocyte Esterase,Urine Moderate (Negative); Mucus,Urine Rare /hpf; Nitrite,Urine Negative (Negative); PH, Urine 8.5 (5.0-8.0); Protein,Urine Trace (Negative); RBC,Urine 2 /hpf (0-5); Specific Gravity,Urine 1.014 (1.001-1.035); Squamous Epithelial Cell,Urine 3 /hpf (0-4); Urobilinogen,Urine <2.0 mg/dL (<2.0); WBC,Urine 21 /hpf (0-5)
[2023-07-27] MEDS ORDERED: SODIUM CHLORIDE 0.9% 1,000 ML IV ONE (22:14)
[2023-07-27] MEDS ORDERED: ONDANSETRON 4 MG/2 ML VIAL IVP STA (22:15)
[2023-07-27] MEDS ORDERED: FAMOTIDINE 20 MG/2 ML VIAL IV STA (22:15)
[2023-07-27] MEDS ORDERED: hydrALAZINE HCL 20 MG/ML 1 ML VIAL IVP STA (22:16)
[2023-07-27] MEDS ORDERED: METOCLOPRAMIDE 5 MG/ML 2 ML VIAL IVP STA (23:36)
--- NOTE | 2023-07-27 23:54 | CT ---
EXAM: CT Abdomen and Pelvis With Intravenous Contrast CLINICAL HISTORY: ITS.REASON CT Reason: pain, hx diverticulitis TECHNIQUE: Axial computed tomography images of the abdomen and pelvis with intravenous contrast. CTDI is 21.9 mGy and DLP is 979.4 mGy-cm. This CT exam was performed using one or more of the following dose reduction techniques: automated exposure control, adjustment of the mA and/or kV according to patient size, and/or use of iterative reconstruction technique. COMPARISON: No relevant prior studies available. FINDINGS: Lung bases: Unremarkable. No mass. No consolidation. ABDOMEN: Liver: Cystic lesion in the LEFT hepatic lobe measures 2.1 x 1.8 cm. Gallbladder and bile ducts: Unremarkable. No calcified stones. No ductal dilation. Pancreas: Unremarkable. No mass. No ductal dilation. Spleen: Unremarkable. No splenomegaly. Adrenals: Unremarkable. No mass. Kidneys and ureters: Unremarkable. No solid mass. No hydronephrosis. Stomach and bowel: Diverticulosis, without acute diverticulitis. No small bowel obstruction. No free intraperitoneal air. PELVIS: Appendix: Normal appendix. Bladder: Decompressed urinary bladder. Reproductive: Atrophy of the uterus. ABDOMEN and PELVIS: Intraperitoneal space: Unremarkable. No free air. No significant fluid collection. Bones/joints: Degenerative changes of the spine. No acute fracture. No dislocation. Soft tissues: Unremarkable. Vasculature: Atherosclerotic changes of the aorta. No abdominal aortic aneurysm. Lymph nodes: Unremarkable. No enlarged lymph nodes. IMPRESSION: Diverticulosis, without acute diverticulitis. No small bowel obstruction. No free intraperitoneal air.
[2023-07-28] MEDS ORDERED: PANTOPRAZOLE 40 MG/10 ML VIAL IVP STA (00:36)
[2023-07-28] MEDS ORDERED: KETOROLAC 15 MG/ML 1 ML VIAL IVP STA (00:36)
[2023-07-28 00:48] VITALS: RESP 18
[2023-07-28] MEDS ORDERED: ONDANSETRON 4 MG ODT STARTER PACK 2 TAB BTL PO STA (01:47)
[2023-07-28 02:44] VITALS: BP 152/82; PULSE 88
== END 2023-07-28 02:10 | disposition home or self-care (01) ==
LOC: EC 19:59
DX: R11.2 Nausea with vomiting, unspecified (principal); T37.3X5A Adverse effect of other antiprotozoal drugs, initial encounter; I10 Essential (primary) hypertension; K21.9 Gastro-esophageal reflux disease without esophagitis; E07.9 Disorder of thyroid, unspecified; Z79.899 Other long term (current) drug therapy; Z79.890 Hormone replacement therapy; Z88.8 Allergy status to other drugs, medicaments and biological substances; Z20.822 Contact with and (suspected) exposure to COVID-19
CPT/HCPCS: 99284; 96374; 96375 ×5; 96361; 36415; 80053; 83605; 83690; 85025; 81001; 87636; 74177; J0360; J2765; J2405; J3490; J1885; S0119; C9113; Q9967

== ENCOUNTER → 2024-08-15 | Outpatient (CLI) | payer MEDICARE ==
--- NOTE | 2024-08-15 17:36 | BD ---
EXAMINATION TYPE: Axial Bone Density DATE OF EXAM: 08/15/2024 CLINICAL HISTORY: 79 years old Female. ICD-10 CODE: Z78.0 [place] , Additional History: Height: 65 Weight: 185.4 FRAX RISK QUESTIONS: Alcohol (3 or more units per day): no Family History (Parent hip fracture): no Glucocorticoids (More than 3mos): no (Ex: prednisone, prednisolone, methylprednisolone, dexamethasone, and hydrocortisone). History of Fracture in Adulthood: yes Secondary Osteoporosis: 1. Type 1 Diabetes: no 2. Hyperthyroidism: no 3. Menopause before 45: yes 4. Malnutrition: no 5. Chronic liver disease: no Rheumatoid Arthritis: no Current Tobacco Use: no RISK FACTORS HISTORY OF: Surgery to Spine/Hip(right/left)/Wrist (right/left): no MEDICATIONS: Thyroid Medications: synthroid How Lon years EXAM MEASUREMENTS: Bone mineral densitometry was performed using the [employer] System. Bone mineral density as measured about the Lumbar spine is: ----- L1-L4(G/cm2): 1.286 T Score Values are as follows: ----- L1: 0.2 ----- L2: 0.1 ----- L3: 1.8 ----- L4: 1.0 ----- L1-L4: 0.9 Z Score Values are as follows: ----- L1: 1.4 ----- L2: 1.4 ----- L3: 30. ----- L4: 2.2 ----- L1-L4: 2.1 Bone mineral density has: decreased-0.8 % since study of: 2017 Bone mineral density about the R hip (g/cm2): 0.918 Bone mineral density about the L hip (g/cm2): 0.920 T Score values are as follows: -----R Neck: -0.8 -----L Neck: -0.8 -----R Total: -0.7 -----L Total: -0.7 Z Score values are as follows: -----R Neck: 1.0 -----L Neck: 0.9 -----R Total: 0.9 -----L Total: 0.9 Bone mineral density has: decreased -7.1 % since study of: 2017 FRAX%s: The graph provided illustrates a 15.6% chance for a major osteoporotic fx and a 2.5% chance f or the hips probability for fx in 10 years time. IMPRESSION: Normal (Values between +1 and -1 indicate normal bone mass). Consider repeating this study in 5 year s or sooner if there is some new clinical indication. NOTE: T-SCORE=SD OF THE YOUNG ADULT MEAN. [facility], , 08/15/2024 5:33 PM
== END | disposition home or self-care (01) ==
LOC: RADBDWWP 14:08
PROVIDERS: ATTEND Family Medicine
DX: Z78.0 Asymptomatic menopausal state (principal)
CPT/HCPCS: 77080